=== PATIENT | female | born 1990 | race Caucasian/White ===

== ENCOUNTER 2020-01-14 16:22 | Outpatient (CLI) | payer BC ==
[~2020-01-14] VITALS: Ht 175.3 cm; Wt 79.1 kg
[2020-01-14] MEDS ORDERED: BETAMETHASONE 6 MG/ML, 5ML IM ONE ×2 (17:07→17:30)
[2020-01-14 17:20] LABS: MICROSCOPIC NOT IND
[2020-01-14 17:28] LABS: ALANINE AMINOTRANSFERASE 26 U/L (12-78); ALBUMIN 2.9 g/dL (3.4-5.0); ANION GAP 8 mmol/L (5-15); CHLORIDE 108 mmol/L (98-107); CREATININE 0.73 mg/dL (0.55-1.02)
[2020-01-14 17:30] LABS: ALKALINE PHOSPHATASE 96 U/L (45-117); BILIRUBIN,TOTAL 0.4 mg/dL (0.2-1.0); TOTAL PROTEIN 7.1 g/dL (6.4-8.2)
[2020-01-14] MEDS ORDERED: PLEASE ENTER ALLERGIES MC SCH (17:30)
[2020-01-14] MEDS ORDERED: PLEASE ENTER HEIGHT AND WEIGHT MC SCH (17:30)
[2020-01-14 17:37] LABS: CREATININE,URINE RANDOM 31.1 mg/dL
[2020-01-14 17:51] LABS: BASOPHILS % (AUTO) 0 % (0-1); EOSINOPHILS % (AUTO) 2 % (1-7); LYMPHOCYTES % (AUTO) 19 % (22-44); MEAN CORPUSCULAR HEMOGLOBIN 31.7 pg (27.0-34.8); MEAN CORPUSCULAR HGB CONC 34.3 g/dL (32.4-35.8); MEAN PLATELET VOLUME 7.4 fL (7.4-10.4); MONOCYTES % (AUTO) 8 % (2-9); NEUTROPHILS % (AUTO) 71 % (42-75); PLATELET COUNT 174 x10^3/uL (130-400); RED BLOOD COUNT 3.75 x10^6/uL (3.82-5.3); RED CELL DISTRIBUTION WIDTH 13.5 % (9.6-15.2)
[2020-01-14 17:52] LABS: MD NO
[2020-01-14 19:03] LABS: AMPHETAMINE SCREEN, URINE Negative (Negative); BARBITURATE SCREEN, URINE Negative (Negative); BENZODIAZEPINE SCREEN, URINE Negative (Negative); CANNABINOID SCREEN, URINE Negative (Negative); COCAINE SCREEN, URINE Negative (Negative); METHADONE SCREEN, URINE Negative (Negative); OPIATE SCREEN, URINE Negative (Negative)
[2020-01-14] MEDS ORDERED: ZOLPIDEM 5MG TABLET ONE (19:28)
[2020-01-14] MEDS ORDERED: ZOLPIDEM 5MG TABLET PO SCH (21:00)
[2020-01-15] MEDS ORDERED: PREN1TAB60 PO (16:22)
[2020-01-15] MEDS ORDERED: ASPI81TA59 PO (16:22)
== END 2020-01-14 19:57 | disposition home or self-care (01) ==
LOC: LDOP 16:22
PROVIDERS: ATTEND Obstetrics & Gynecology
DX: O26.893 Other specified pregnancy related conditions, third trimester (principal); R10.9 Unspecified abdominal pain; Z3A.33 33 weeks gestation of pregnancy
CPT/HCPCS: 59025; 80053; 80307; 81003; 82570; 83615; 84156; 84550; 85025; 87086; 96372; J0702

== ENCOUNTER 2020-01-15 16:07 | Outpatient (CLI) | payer BC ==
[~2020-01-15] VITALS: Ht 175.3 cm; Wt 79.1 kg
[2020-01-15] MEDS ORDERED: PREN1TAB60 PO (16:22)
[2020-01-15] MEDS ORDERED: ASPI81TA59 PO (16:22)
[2020-01-15] MEDS ORDERED: BETAMETHASONE 6 MG/ML, 5ML IM ONE (16:30)
[2020-01-15 16:52] VITALS: BP 128/72
[2020-01-15 17:14] LABS: MICROSCOPIC NOT IND
== END 2020-01-15 17:55 | disposition home or self-care (01) ==
LOC: LDOP 16:07
PROVIDERS: ATTEND Obstetrics & Gynecology
DX: O26.893 Other specified pregnancy related conditions, third trimester (principal); R10.9 Unspecified abdominal pain; Z3A.33 33 weeks gestation of pregnancy
CPT/HCPCS: 59025; 81003; 96372; J0702

== ENCOUNTER 2020-01-17 08:52 | Outpatient (CLI) | payer BC ==
[~2020-01-17] VITALS: Ht 175.3 cm; Wt 77.2 kg
[~2020-01-17 08:52] MED LIST: ASPI81TA59 PO; PREN1TAB60 PO
[2020-01-17 09:01] VITALS: BP 126/76
== END 2020-01-17 11:04 | disposition home or self-care (01) ==
LOC: LDOP 08:52
PROVIDERS: ATTEND Obstetrics & Gynecology
DX: O42.913 Preterm premature rupture of membranes, unspecified as to length of time between rupture and onset of labor, third trimester (principal); Z3A.33 33 weeks gestation of pregnancy
CPT/HCPCS: 59025; 76819; 84112

== ENCOUNTER 2020-01-29 12:45 | Inpatient (IN) | payer BC ==
[~2020-01-29] VITALS: Ht 175.3 cm; Wt 76.8 kg
[2020-01-29 13:00] VITALS: BP 132/74
[2020-01-29 13:14] LABS: MICROSCOPIC NOT IND
[2020-01-29 13:27] LABS: CREATININE,URINE RANDOM 48.1 mg/dL
[2020-01-29 13:28] LABS: BASOPHILS % (AUTO) 0 % (0-1); EOSINOPHILS % (AUTO) 1 % (1-7); LYMPHOCYTES % (AUTO) 23 % (22-44); MEAN CORPUSCULAR HEMOGLOBIN 31.6 pg (27.0-34.8); MEAN CORPUSCULAR HGB CONC 34.7 g/dL (32.4-35.8); MEAN PLATELET VOLUME 7.5 fL (7.4-10.4); MONOCYTES % (AUTO) 8 % (2-9); NEUTROPHILS % (AUTO) 69 % (42-75); PLATELET COUNT 148 x10^3/uL (130-400); RED BLOOD COUNT 3.85 x10^6/uL (3.82-5.3); RED CELL DISTRIBUTION WIDTH 14.1 % (9.6-15.2)
[2020-01-29 13:35] LABS: ALANINE AMINOTRANSFERASE 14 U/L (12-78); ANION GAP 7 mmol/L (5-15); BILIRUBIN, DIRECT 0.1 mg/dL (0.1-0.2); CALCIUM 8.8 mg/dL (8.5-10.1); CHLORIDE 110 mmol/L (98-107); CREATININE 0.68 mg/dL (0.55-1.02); MD NO
[2020-01-29 13:37] LABS: ALKALINE PHOSPHATASE 102 U/L (45-117); BILIRUBIN,TOTAL 0.4 mg/dL (0.2-1.0); TOTAL PROTEIN 7.1 g/dL (6.4-8.2)
[2020-01-30] MEDS ORDERED: FENTANYL PF 100 MCG/2ML IVPush PRN (11:00)
[2020-01-30] MEDS ORDERED: D5%-LACTATED RINGERS 1,000 ML IV SCH (11:00)
[2020-01-30] MEDS ORDERED: METOCLOPRAMIDE 5 MG/ML, 2ML IVPush PRN (11:00)
[2020-01-30] MEDS ORDERED: OXYTOCIN 30U/ 0.9% NaCL 500ML 500 ML IV PRN (11:00)
[2020-01-30] MEDS ORDERED: TERBUTALINE 1 MG/ML, 1ML SQ PRN (11:00)
[2020-01-30] MEDS ORDERED: CALCIUM CARBONATE 500 MG TAB.CHEW PO PRN (11:00)
[2020-01-30] MEDS ORDERED: OXYTOCIN 30U/ 0.9% NaCL 500ML 500 ML IV ONE (11:00)
[2020-01-30] MEDS ORDERED: MISOPROSTOL 25 MCG TABLET PO PRN (11:00)
[2020-01-30] MEDS ORDERED: FENTANYL PF 100 MCG/2ML IV PRN (11:00)
[2020-01-30] MEDS ORDERED: TERBUTALINE 1 MG/ML, 1ML IVPush PRN (11:00)
[2020-01-30] MEDS ORDERED: LACTATED RINGERS 1,000 ML IV SCH (11:00)
[2020-01-30] MEDS ORDERED: SODIUM CITRATE/CITRIC ACID 30 ML UDC PO PRN (11:00)
[2020-01-30] MEDS ORDERED: ONDANSETRON 2MG/ML, 2ML IVPush PRN (11:00)
[2020-01-30 11:13] LABS: BASOPHILS % (AUTO) 0 % (0-1); EOSINOPHILS % (AUTO) 1 % (1-7); LYMPHOCYTES % (AUTO) 19 % (22-44); MEAN CORPUSCULAR HEMOGLOBIN 31.3 pg (27.0-34.8); MEAN CORPUSCULAR HGB CONC 34.5 g/dL (32.4-35.8); MEAN PLATELET VOLUME 7.7 fL (7.4-10.4); MONOCYTES % (AUTO) 8 % (2-9); NEUTROPHILS % (AUTO) 72 % (42-75); PLATELET COUNT 144 x10^3/uL (130-400); RED BLOOD COUNT 3.94 x10^6/uL (3.82-5.3); RED CELL DISTRIBUTION WIDTH 13.5 % (9.6-15.2)
[2020-01-30 11:15] LABS: MD NO
[2020-01-30] MEDS ORDERED: MISOPROSTOL 200 MCG TABLET ONE (11:37)
[2020-01-30] MEDS ORDERED: MISOPROSTOL 25 MCG TABLET ONE (11:37)
[2020-01-30] MEDS ORDERED: NEWBORN KIT ONE (11:37)
[2020-01-30] MEDS ORDERED: OXYTOCIN 30U/ 0.9% NaCL 500ML 500 ML ONE (11:37)
[2020-01-30] MEDS ORDERED: LIDOCAINE 1%, 20ML ONE (11:37)
[2020-01-31] MEDS ORDERED: SODIUM CHLORIDE FLUSH 3ML SYRINGE IVF SCH (09:00)
== END 2020-01-31 09:48 | disposition home or self-care (01) | DRG 831 ==
LOC: LDOP 12:45 → LDIP 14:30 → LDOP 14:31 → OBSVTOIN 14:31 → LDIP 14:31 → 2NE 21:26 → LDIP 01-30 14:49
PROVIDERS: ADMIT Obstetrics & Gynecology; ATTEND Obstetrics & Gynecology
DX: O13.3 Gestational [pregnancy-induced] hypertension without significant proteinuria, third trimester (principal); O60.03 Preterm labor without delivery, third trimester; O36.8130 Decreased fetal movements, third trimester, not applicable or unspecified; Z3A.35 35 weeks gestation of pregnancy; O36.8330 Maternal care for abnormalities of the fetal heart rate or rhythm, third trimester, not applicable or unspecified; Z20.828 Contact with and (suspected) exposure to other viral communicable diseases
CPT/HCPCS: 36415; 76819; 80053; 81003; 82248; 82570; 84156; 84550; 85025; 86592; 86850; 86900; 87086; 87635; G0378

== ENCOUNTER 2020-02-13 06:05 | Inpatient (IN) | payer BC ==
[~2020-02-13] VITALS: Ht 175.3 cm; Wt 77.0 kg
[2020-02-13 06:30] VITALS: BP 136/80
[2020-02-13] MEDS ORDERED: MISOPROSTOL 25 MCG TABLET VG PRN (06:30)
[2020-02-13] MEDS ORDERED: TERBUTALINE 1 MG/ML, 1ML SQ PRN (06:30)
[2020-02-13] MEDS ORDERED: PLEASE ENTER HEIGHT AND WEIGHT MC SCH (06:30)
[2020-02-13] MEDS ORDERED: OXYTOCIN 30U/ 0.9% NaCL 500ML 500 ML IV ONE (06:30)
[2020-02-13] MEDS ORDERED: TERBUTALINE 1 MG/ML, 1ML IVPush PRN (06:30)
[2020-02-13] MEDS ORDERED: OXYTOCIN 30U/ 0.9% NaCL 500ML 500 ML IV PRN (06:30)
[2020-02-13] MEDS ORDERED: NEWBORN KIT ONE (06:33)
[2020-02-13 06:46] LABS: BASOPHILS % (AUTO) 0 % (0-1); EOSINOPHILS % (AUTO) 2 % (1-7); LYMPHOCYTES % (AUTO) 26 % (22-44); MEAN CORPUSCULAR HEMOGLOBIN 30.9 pg (27.0-34.8); MEAN CORPUSCULAR HGB CONC 34.4 g/dL (32.4-35.8); MEAN PLATELET VOLUME 7.7 fL (7.4-10.4); MONOCYTES % (AUTO) 7 % (2-9); NEUTROPHILS % (AUTO) 65 % (42-75); PLATELET COUNT 159 x10^3/uL (130-400); RED BLOOD COUNT 3.79 x10^6/uL (3.82-5.3); RED CELL DISTRIBUTION WIDTH 13.8 % (9.6-15.2)
[2020-02-13 06:58] LABS: ALANINE AMINOTRANSFERASE 14 U/L (12-78); ALBUMIN 2.7 g/dL (3.4-5.0); ANION GAP 10 mmol/L (5-15); CALCIUM 8.9 mg/dL (8.5-10.1); CHLORIDE 109 mmol/L (98-107); CREATININE 0.87 mg/dL (0.55-1.02)
[2020-02-13 07:01] LABS: ALKALINE PHOSPHATASE 105 U/L (45-117); BILIRUBIN,TOTAL 0.3 mg/dL (0.2-1.0); TOTAL PROTEIN 6.5 g/dL (6.4-8.2)
[2020-02-13 07:33] LABS: MD SCAN
[2020-02-13] MEDS ORDERED: MISOPROSTOL 25 MCG TABLET ONE (07:48)
[2020-02-13 19:08] VITALS: BP 143/93
[2020-02-13] MEDS ORDERED: LIDOCAINE 1%, 20ML ONE (19:39)
[2020-02-13] MEDS ORDERED: MISOPROSTOL 200 MCG TABLET ONE (19:39)
[2020-02-13] MEDS ORDERED: OXYTOCIN 30U/ 0.9% NaCL 500ML 500 ML ONE (19:39)
[2020-02-13] MEDS: LACTATED RINGERS 1,000 ML IV SCH (20:49)
[2020-02-13] MEDS ORDERED: FENTANYL PF 100 MCG/2ML ONE (21:55)
[2020-02-13] MEDS ORDERED: ONDANSETRON 2MG/ML, 2ML ONE (21:55)
[2020-02-13] MEDS: FENTANYL PF 100 MCG/2ML IV PRN (21:57)
[2020-02-13] MEDS ORDERED: ONDANSETRON 2MG/ML, 2ML IVPush PRN (22:00)
[2020-02-14] MEDS: FENTANYL PF 100 MCG/2ML IV PRN (02:41)
[2020-02-14] MEDS: LACTATED RINGERS 1,000 ML IV SCH ×2 (02:43→12:43)
[2020-02-14] MEDS ORDERED: OXYTOCIN 30U/ 0.9% NaCL 500ML 500 ML ONE (08:16)
[2020-02-14 09:08] LABS: MICROSCOPIC INDICATED
[2020-02-14 09:28] LABS: TOTAL PROTEIN,URINE RANDOM < 5 mg/dL (0-12)
[2020-02-14] MEDS ORDERED: BUPIVACAINE 0.25% ONE (12:17)
[2020-02-14] MEDS ORDERED: FENTANYL/BUPIV./NS/PF 250 ML EPIDCONT ONE (12:53)
[2020-02-14] MEDS ORDERED: LACTATED RINGERS 1,000 ML IVBOLUS PRN (13:00)
[2020-02-14] MEDS ORDERED: DIPHENHYDRAMINE 50 MG/ML, 1ML IVPush PRN (13:00)
[2020-02-14] MEDS ORDERED: NALOXONE 0.4 MG/ML, 1ML IVPush PRN (13:00)
[2020-02-14] MEDS ORDERED: EPHEDRINE 50 MG/ML, 1ML IVPush PRN (13:00)
[2020-02-14] MEDS ORDERED: FENTANYL/BUPIV./NS/PF 250 ML EPIDCONT SCH (13:00)
[2020-02-14] MEDS ORDERED: ONDANSETRON 2MG/ML, 2ML IVPush PRN (13:00)
[2020-02-14] MEDS ORDERED: LACTATED RINGERS 1,000 ML IV SCH (13:00)
[2020-02-14] MEDS ORDERED: MISOPROSTOL 200 MCG TABLET PR PRN (15:30)
[2020-02-14] MEDS ORDERED: DOCUSATE 100 MG CAPSULE PO PRN (15:30)
[2020-02-14] MEDS ORDERED: ACETAMINOPHEN 325 MG TABLET PO PRN ×2 (15:30)
[2020-02-14] MEDS ORDERED: SIMETHICONE 80 MG CHEW TAB PO PRN (15:30)
[2020-02-14] MEDS ORDERED: IBUPROFEN 600 MG TABLET PO PRN (15:30)
[2020-02-14] MEDS: OXYTOCIN 30U/ 0.9% NaCL 500ML 500 ML IV SCH (15:30)
[2020-02-14] MEDS ORDERED: OXYcodone/APAP 5/325MG TABLET PO PRN (15:30)
[2020-02-14] MEDS ORDERED: ONDANSETRON 2MG/ML, 2ML IV PRN (15:30)
[2020-02-14 17:37] VITALS: BP 115/68
[2020-02-14 20:10] VITALS: BP 116/70
[2020-02-14] MEDS ORDERED: DIPH,PERTUSS(ACELL),TET VAC/PF NC IM-VACC ONE (22:00)
[2020-02-14 23:48] LABS: BASOPHILS % (AUTO) 0 % (0-1); EOSINOPHILS % (AUTO) 1 % (1-7); LYMPHOCYTES % (AUTO) 19 % (22-44); MEAN CORPUSCULAR HEMOGLOBIN 31.3 pg (27.0-34.8); MEAN CORPUSCULAR HGB CONC 34.3 g/dL (32.4-35.8); MEAN PLATELET VOLUME 7.9 fL (7.4-10.4); MONOCYTES % (AUTO) 10 % (2-9); NEUTROPHILS % (AUTO) 69 % (42-75); PLATELET COUNT 149 x10^3/uL (130-400); RED BLOOD COUNT 3.34 x10^6/uL (3.82-5.3); RED CELL DISTRIBUTION WIDTH 13.7 % (9.6-15.2)
[2020-02-15 00:46] LABS: MD SCAN
[2020-02-15] MEDS: OXYTOCIN 30U/ 0.9% NaCL 500ML 500 ML IV SCH (01:30)
[2020-02-15 01:40] VITALS: BP 118/71
[2020-02-15 04:32] VITALS: BP 111/67
[2020-02-15 08:00] VITALS: BP 156/77
[2020-02-15] MEDS ORDERED: PRENATAL VIT/IRON/FA 1 EACH TABLET PO SCH (09:00)
[2020-02-15] MEDS ORDERED: IBUP-1222 PO (11:22)
[2020-02-15 13:00] VITALS: BP 128/84
== END 2020-02-15 16:00 | disposition home or self-care (01) | DRG 807 ==
LOC: LDIP 06:05 → UNDOADMIN 06:05 → 2NW 02-14 18:03
PROVIDERS: ADMIT Obstetrics & Gynecology; ATTEND Obstetrics & Gynecology
PROC: 10E0XZZ Delivery of Products of Conception, External Approach (ICD-10-PCS; principal; 2020-02-14)
DX: O13.4 Gestational [pregnancy-induced] hypertension without significant proteinuria, complicating childbirth (principal); Z37.0 Single live birth; Z3A.37 37 weeks gestation of pregnancy; Z79.82 Long term (current) use of aspirin; Z20.828 Contact with and (suspected) exposure to other viral communicable diseases; Z88.0 Allergy status to penicillin
CPT/HCPCS: 36415; 80053; 81001; 82570; 84156; 84550; 85025; 86592; 86850; 86900; 87635; 90715; G0378; J3010; J2590; J7120